=== PATIENT | male | born 1970 | race Native Hawaiian/Other Pacific Islander ===

== ENCOUNTER 2016-05-19 17:02 | Emergency (ER) | payer OTHER ==
[~2016-05-19] VITALS: Ht 172.7 cm; Wt 72.6 kg
[2016-05-19 20:00] VITALS: BP 155/93; TEMP 98.6
[2016-05-19] MEDS ORDERED: HYDR10TA51 PO (20:16)
[2016-05-19] MEDS ORDERED: NEXIUM40 M1 PO (20:17)
== END 2016-05-19 21:21 | disposition left against medical advice (07) ==
LOC: ED 17:02
DX: M54.5 Low back pain (principal)
CPT/HCPCS: 99281; J3490

== ENCOUNTER 2016-05-25 12:53 | Observation (INO) | payer OTHER ==
[~2016-05-25] VITALS: Ht 172.7 cm; Wt 71.7 kg
[~2016-05-25 12:53] MED LIST: HYDR10TA51 PO; NEXIUM40 M1 PO
[2016-05-25 14:37] LABS: PLATELET COUNT 219 K/uL (142-355)
[2016-05-25 14:46] LABS: POTASSIUM 3.6 mmol/L (3.6-5.2); SODIUM 137 mmol/L (136-145)
[2016-05-25 14:49] VITALS: BP 150/93; TEMP 98.5; Ht 172.7 cm; Wt 71.7 kg
[2016-05-25 16:16] VITALS: BP 142/76; TEMP 98.8
[2016-05-25 20:17] VITALS: BP 137/69; TEMP 97.8
== END 2016-05-25 20:30 | disposition home or self-care (01) ==
LOC: MED/SURG 12:53
PROVIDERS: ADMIT Family Medicine
DX: E86.0 Dehydration (principal); R63.4 Abnormal weight loss; R11.2 Nausea with vomiting, unspecified; M54.5 Low back pain; M54.12 Radiculopathy, cervical region
CPT/HCPCS: 80053; 85027; 96360; 96361; 99220; G0378; G0379; J2405; Q9963

== ENCOUNTER 2016-06-13 09:40 | Outpatient (CLI) | payer OTHER | END 2016-06-13 20:08 | disposition home or self-care (01) | LOC: MRI 09:40 | DX: M54.14 Radiculopathy, thoracic region (principal); M54.17 Radiculopathy, lumbosacral region ==

== ENCOUNTER 2017-06-08 11:04 | Observation (INO) | payer OTHER ==
[~2017-06-08] VITALS: Ht 172.7 cm; Wt 69.5 kg
[2017-06-08 12:13] VITALS: BP 148/92; TEMP 98; Ht 172.7 cm; Wt 69.5 kg
[2017-06-08 13:03] LABS: PLATELET COUNT 274 K/uL (142-355)
[2017-06-08 13:16] LABS: POTASSIUM 3.9 mmol/L (3.6-5.2)
[2017-06-08 16:00] VITALS: BP 145/89; TEMP 98.8
--- NOTE | 2017-06-08 17:29 | NUR ---
DR. SAMPSON NOTIFIED AT THIS TIME PER DR. ZARAGOZA. DR. SAMPSON COMING IN AM FOR CONSULT.
[2017-06-08 20:00] VITALS: BP 195/104; TEMP 98.6
[2017-06-09 00:15] VITALS: BP 132/72; TEMP 98.4
[2017-06-09 04:00] VITALS: BP 116/69; TEMP 98.1
[2017-06-09 08:00] VITALS: BP 127/71; TEMP 99.3
[2017-06-09 12:00] VITALS: BP 125/88; TEMP 98.8
--- NOTE | 2017-06-09 12:54 | NUR ---
PT SENT TO OR AT 1121.
== END 2017-06-09 15:44 | disposition home or self-care (01) ==
LOC: MED/SURG 11:04
PROVIDERS: ADMIT Family Medicine
PROC: 0DB68ZZ Excision of Stomach, Via Natural or Artificial Opening Endoscopic (ICD-10-PCS; principal; 2017-06-09)
DX: K20.8 Other esophagitis (principal); K29.60 Other gastritis without bleeding; K44.9 Diaphragmatic hernia without obstruction or gangrene
CPT/HCPCS: 80053; 81000; 82272; 83605; 85027; 87040; 99220; G0378; G0379; J2001; J2250; J2704; J2780; J3490

== ENCOUNTER 2017-09-28 13:08 | Emergency (ER) | payer OTHER ==
[~2017-09-28] VITALS: Ht 172.7 cm; Wt 71.7 kg
[2017-09-28 13:15] VITALS: BP 137/92; TEMP 100
== END 2017-09-28 13:56 | disposition home or self-care (01) ==
LOC: ED 13:08
DX: T63.2X1A Toxic effect of venom of scorpion, accidental (unintentional), initial encounter (principal)
CPT/HCPCS: 99281

== ENCOUNTER → 2018-08-20 | Outpatient (CLI) | payer OTHER | LOC: RAD 17:38 | DX: K59.00 Constipation, unspecified (principal) ==

== ENCOUNTER 2018-09-11 11:38 | Emergency (ER) | payer OTHER ==
[~2018-09-11] VITALS: Ht 172.7 cm; Wt 73.5 kg
[2018-09-11 11:55] VITALS: TEMP 98.6
[2018-09-11 13:30] VITALS: BP 120/88
== END 2018-09-11 13:33 | disposition home or self-care (01) ==
LOC: ED 11:38
DX: S60.052A Contusion of left little finger without damage to nail, initial encounter (principal); W22.8XXA Striking against or struck by other objects, initial encounter; Y93.89 Activity, other specified; Y92.89 Other specified places as the place of occurrence of the external cause
CPT/HCPCS: 99282

== ENCOUNTER 2018-09-19 11:44 | Emergency (ER) | payer OTHER ==
[~2018-09-19] VITALS: Ht 172.7 cm; Wt 73.5 kg
[2018-09-19 12:00] VITALS: BP 168/106; TEMP 97.7
[2018-09-19 12:53] LABS: PLATELET COUNT 263 K/uL (142-355)
[2018-09-19 13:01] LABS: POTASSIUM 4.2 mmol/L (3.6-5.2); SODIUM 139 mmol/L (136-145)
== END 2018-09-19 17:30 | disposition home or self-care (01) ==
LOC: ED 11:44
PROVIDERS: Emergency Medicine
DX: R07.89 Other chest pain (principal); R10.11 Right upper quadrant pain; R00.0 Tachycardia, unspecified
CPT/HCPCS: 80053; 80307; 81000; 82150; 82550; 82553; 83690; 84484; 85027; 93005; 96361; 96374; 99284; J1885; Q9963

== ENCOUNTER 2019-04-21 14:40 | Emergency (ER) | payer OTHER ==
[~2019-04-21] VITALS: Ht 172.7 cm; Wt 77.1 kg
[2019-04-21 14:57] VITALS: TEMP 99
[2019-04-21 16:17] LABS: PLATELET COUNT 258 K/uL (142-355)
[2019-04-21 16:29] LABS: PARTIAL THROMBOPLASTIN TIME 24.7 SECONDS (24.5-33.6)
[2019-04-21 20:49] VITALS: BP 155/75
== END 2019-04-21 20:49 | disposition home or self-care (01) ==
LOC: ED 14:40
PROVIDERS: Hospitalist
DX: K29.61 Other gastritis with bleeding (principal); R11.2 Nausea with vomiting, unspecified
CPT/HCPCS: 36415; 80053; 81000; 82150; 83690; 85027; 85610; 85730; 87040; 96365; 96366; 96375; 99284; J1170; J1885; J1956; J2405; J3490; Q9963

== ENCOUNTER 2019-07-30 10:42 | Emergency (ER) | payer OTHER ==
[~2019-07-30] VITALS: Ht 172.7 cm; Wt 77.1 kg
[2019-07-30 11:21] LABS: PLATELET COUNT 295 K/uL (142-355)
[2019-07-30 11:30] LABS: POTASSIUM 3.8 mmol/L (3.6-5.2)
[2019-07-30 15:30] VITALS: BP 126/87; TEMP 98.2
== END 2019-07-30 15:35 | disposition home or self-care (01) ==
LOC: ED 10:42
PROVIDERS: Family Medicine
DX: K92.2 Gastrointestinal hemorrhage, unspecified (principal); R10.84 Generalized abdominal pain; I10 Essential (primary) hypertension; R00.0 Tachycardia, unspecified; F17.210 Nicotine dependence, cigarettes, uncomplicated
CPT/HCPCS: 80053; 81000; 82150; 82272; 82550; 83690; 84484; 85027; 93005; 96360; 96375; 96376; 99284; J2175

== ENCOUNTER 2020-11-17 23:56 | Emergency (ER) | payer OTHER ==
[~2020-11-17] VITALS: Ht 172.7 cm; Wt 77.1 kg
[2020-11-18 00:59] LABS: PLATELET COUNT 261 K/uL (142-355)
[2020-11-18 01:02] LABS: POTASSIUM 3.8 mmol/L (3.6-5.2); SODIUM 144 mmol/L (136-145)
[2020-11-18 04:48] VITALS: BP 142/73; TEMP 98.5
== END 2020-11-18 04:48 | disposition home or self-care (01) ==
LOC: ED 23:56
PROVIDERS: Family Medicine
DX: F12.90 Cannabis use, unspecified, uncomplicated (principal); F13.90 Sedative, hypnotic, or anxiolytic use, unspecified, uncomplicated; R55 Syncope and collapse; W18.39XA Other fall on same level, initial encounter; Y92.481 Parking lot as the place of occurrence of the external cause
CPT/HCPCS: 36415; 80053; 80307; 80320; 81000; 84484; 85027; 93005; 99283

== ENCOUNTER 2020-11-18 11:38 | Emergency (ER) | payer OTHER ==
[~2020-11-18] VITALS: Ht 172.7 cm; Wt 77.1 kg
[2020-11-18 12:23] LABS: PLATELET COUNT 268 K/uL (142-355)
[2020-11-18 12:25] LABS: POTASSIUM 3.9 mmol/L (3.6-5.2)
[2020-11-18 12:30] VITALS: TEMP 99.1
[2020-11-18 14:00] VITALS: BP 148/89
== END 2020-11-18 17:34 | disposition home or self-care (01) ==
LOC: ED 11:41
PROVIDERS: Family Medicine
DX: F19.10 Other psychoactive substance abuse, uncomplicated (principal); S20.229A Contusion of unspecified back wall of thorax, initial encounter; S30.0XXA Contusion of lower back and pelvis, initial encounter; R51.9 Headache, unspecified; V89.2XXA Person injured in unspecified motor-vehicle accident, traffic, initial encounter; Y92.89 Other specified places as the place of occurrence of the external cause
CPT/HCPCS: 80053; 80307; 85027; 99283